=== PATIENT | male | born 1975 | race Caucasian/White ===

== ENCOUNTER 2017-05-15 14:42 | Emergency (ER) | payer MEDICAID, OTHER ==
[~2017-05-15] VITALS: Ht 160 cm; Wt 89.0 kg
[2017-05-15 14:47] VITALS: Ht 160 cm; Wt 89.0 kg
[2017-05-15] MEDS ORDERED: DIPHTH/TET/ACEL PERTUSS (ADULT) 0.5 ML VIAL IM* ONE (15:00)
--- NOTE | 2017-05-15 15:13 | ERD ---
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 He states that he had the machine to lift up the car and it slipped and the car engine fell on his finger and he tried to pull his finger out. States that there was bleeding, but bleeding controlled now. Denies pain in other areas. Denies numbness or tingling. Not up to date with tetanus. No other c/o ROS All systems reviewed and are negative except as per history of present illness. Medications Home Meds Active Scripts Cephalexin* (Keflex*) 500 Mg Capsule, 500 MG PO TID for 7 Days, CAP Prov:CANDY ETIENNE PA-C 05/15/17 PMhx/Soc History of Surgery: No Anesthesia Reaction: No Hx Neurological Disorder: No Hx Respiratory Disorders: No Hx Cardiac Disorders: No Hx Psychiatric Problems: No Hx Miscellaneous Medical Probl: No Hx Alcohol Use: No Hx Substance Use: No Hx Tobacco Use: No Physical Exam Vitals Vital Signs Date Time Temp Pulse Resp B/P Pulse Ox O2 Delivery O2 Flow Rate FiO2 05/15/17 14:47 98.1 86 18 137/86 99 Physical Exam GENERAL: Well-developed, well-nourished male. Appears in no acute distress. HEAD: Normocephalic, atraumatic. EYES: Pupils are equally reactive bilaterally. EOMs grossly intact. No conjunctival erythema. ENT: Moist mucous membranes. No uvula deviation. No kissing tonsils. No exudates. NECK: Supple. No lymphadenopathy or thyromegaly. No meningismus. negative kernig. negative brudinski. LUNG: Clear to auscultation bilaterally. No rhonchi, wheezing, rales or coarse breath sounds. HEART: Regular rate and rhythm. No murmurs, rubs or gallops. Extremities: Equal pulses bilaterally. No peripheral clubbing, cyanosis or edema. No unilateral leg swelling. right thumb has laceration and open cuts and slightly deformed. radius, ulnar, median nerve intact. NEUROLOGIC: Alert and oriented. Moving all four extremities. 5/5 strength in all extremities. Normal speech. Steady gait. SKIN: Normal color. Warm and dry. No rashes or lesions. Capillary refill < 2 seconds Results 24 hrs Current Medications Medications (Trade) Dose Ordered Sig/Marcin Route PRN Reason Start Time Stop Time Status Last Admin Dose Admin Diphtheria/ Tetanus/Acell Pertussis (Adacel) 0.5 ml ONCE ONCE IM* 05/15/17 15:00 05/15/17 15:01 DC 05/15/17 15:08 Lidocaine (Xylocaine 1% (Mdv) 20 ml) 20 ml ONCE ONCE SC 05/15/17 16:00 05/15/17 16:01 DC 05/15/17 15:44 Cephalexin (Keflex) 500 mg ONCE ONCE PO 05/15/17 16:00 05/15/17 16:01 DC 05/15/17 15:43 Cefazolin Sodium (Ancef) 1 gm ONCE ONCE IM 05/15/17 16:00 05/15/17 16:01 DC Procedures/MDM ER COURSE: I kept the patient and/or family informed of laboratory and diagnostic imaging results throughout the emergency room course. IMAGING: [place] [id number] Radiology Main Line: [phone] DIAGNOSTIC IMAGING REPORT Patient: JAVIER CHILDERS : 1975 Age: 41 Sex: M MR #: [id number] DOS: 05/15/17 1457 Ordering MD: CANDY ETIENNE PA-C Location: [facility] Room/Bed: PROCEDURE: XR Hand 3 Views. CLINICAL INDICATION: Right thumb pain and trauma. TECHNIQUE: AP, oblique and lateral views of the right hand were obtained. COMPARISON: No prior studies are available for comparison. FINDINGS: Subtle, minimally displaced fracture to the tip of the tuft of the first distal phalanx is identified. Overlying soft tissue irregularity may reflect soft tissue laceration. Dressing material is seen surrounding the thumb. The remaining osseous structures appear intact. No destructive bony lesions are observed. The interosseous spaces are unremarkable. IMPRESSION: Subtle fracture of the tip of the tuft of the first distal phalanx. Overlying soft tissue irregularity that may reflect soft tissue laceration. If there is high clinical suspicion for additional traumatic injury, further evaluation with CT should be considered. RPTAT: AA .Naren Rossi MD, MD Date Time Electronically viewed and signed by .Naren Rossi MD, MD on 05/15/2017 15:52 .P/ CC: CANDY ETIENNE PA-C MEDICAL DECISION MAKING: This is a 41 year old male who presents with laceration and finger pain after jamming into engine of car when it fell on finger today. Vital signs were reviewed. Patient is afebrile. Patient is not hypoxic. Also with my supervising physician Dr. gallego who examined patient agrees with my medical decision making and discharge plans. xray as read by radiologist shows Subtle fracture of the tip of the tuft of the first distal phalanx. Low suspicion for dislocation, septic joint, compartment syndrome, osteomyelitis, cellulitis, avascular necrosis, neurological injury, vascular injury, tendon laceration. Laceration Repair by me: Anesthesia: 1% lidocaine locally - digital block Location: right thumb Tendon/Joint/Nerves: No injury Foreign body: None detected after copious irrigation and exploration Technique: 4, 3-0 Simple Interrupted Sutures Complexity: No subcutaneous sutures/mucosal repair/ edge excision Post Closure Length: 4 cm Patient's bleeding was easily controlled in the department and there is no indication of anemia. No evidence of compartment syndrome, neurologic injury, vascular injury, open joint, tendon laceration, or foreign body. Patient is appropriate for outpatient follow up. 48 hour wound check. Scar minimization instructions given. One dose of keflex and 1g ancef given in ED. tolerated well with no adverse reaction Tdap given DISCHARGE: At this time, patient is stable for discharge and outpatient management with no new complaints during the ER course. Patient was sent home with Keflex, 2 day wound check in 7 day suture removal. Patient will be discharged home with instructions to recheck for new or worsening symptoms such as fever, nausea, weakness, LOC and to follow up with primary care in the next 1-2 days. Patient was advised to return to the ER for any new or worsening symptoms. Plan was discussed and patient and/or family understands and agrees. Home instructions were given. Departure Diagnosis: Primary Impression: Open fracture of tuft of distal phalanx of finger Additional Impression: Laceration Condition: Stable SHOOSHTARIAN,TANNAZ PA-C May 15, 2017 15:13
--- NOTE | 2017-05-15 15:53 | RADRPT ---
PROCEDURE: XR Hand 3 Views. CLINICAL INDICATION: Right thumb pain and trauma. TECHNIQUE: AP, oblique and lateral views of the right hand were obtained. COMPARISON: No prior studies are available for comparison. FINDINGS: Subtle, minimally displaced fracture to the tip of the tuft of the first distal phalanx is identifie d. Overlying soft tissue irregularity may reflect soft tissue laceration. Dressing material is seen surrounding the thumb. The remaining osseous structures appear intact. No destructive bony lesions are observed. The interosseous spaces are unremarkable. IMPRESSION: Subtle fracture of the tip of the tuft of the first distal phalanx. Overlying soft tissue irregularity that may reflect soft tissue laceration. If there is high clinical suspicion for additional traumatic injury, further evaluation with CT shou ld be considered. RPTAT: AA .Naren Rossi MD, Date Time Electronically viewed and signed by .Naren Rossi MD, on 05/15/2017 15:52 .P/
[2017-05-15] MEDS ORDERED: CEPH-443 PO (15:54)
[2017-05-15] MEDS ORDERED: LIDOCAINE 1% (MDV) 20 ML INJ SC ONE (16:00)
[2017-05-15] MEDS ORDERED: CEPHALEXIN 500 MG CAP PO ONE (16:00)
[2017-05-15] MEDS ORDERED: CEFAZOLIN 1 GM INJ IM ONE (16:00)
== END 2017-05-15 16:17 | disposition home or self-care (01) ==
LOC: FTE 14:42
DX: S62.521A Displaced fracture of distal phalanx of right thumb, initial encounter for closed fracture (principal); S61.011A Laceration without foreign body of right thumb without damage to nail, initial encounter; W20.8XXA Other cause of strike by thrown, projected or falling object, initial encounter; Y92.89 Other specified places as the place of occurrence of the external cause; Z23 Encounter for immunization
CPT/HCPCS: 12002; 73130; 90471; 96372; J0690; Z7502; Z7610

== ENCOUNTER 2017-05-25 16:09 | Emergency (ER) | payer MEDICAID ==
[~2017-05-25] VITALS: Ht 167.6 cm; Wt 75.0 kg
[~2017-05-25 16:09] MED LIST: CEPH-443 PO
[2017-05-25 16:17] VITALS: Ht 167.6 cm; Wt 75.0 kg
--- NOTE | 2017-05-25 17:11 | ERD ---
ER Documentation Chief Complaint Chief Complaint WOUND CHECK HPI This is a 41-year-old male that presents to the ER for suture removal. Patient now laceration on May 15 and had not had time to come to the ER to remove sutures. Patient is feeling much better, he does not have any pain. He has been working. He has not had any fevers or chills. ROS 12 point review of systems was done, all negative except per HPI.. Medications Home Meds Active Scripts Cephalexin* (Keflex*) 500 Mg Capsule, 500 MG PO TID for 7 Days, CAP Prov:CANDY ETIENNE PA-C 05/15/17 PMhx/Soc History of Surgery: No Anesthesia Reaction: No Hx Neurological Disorder: No Hx Respiratory Disorders: No Hx Cardiac Disorders: No Hx Psychiatric Problems: No Hx Miscellaneous Medical Probl: No Hx Alcohol Use: No Hx Substance Use: No Hx Tobacco Use: No Smoking Status: Never smoker Physical Exam Vitals Vital Signs Date Time Temp Pulse Resp B/P Pulse Ox O2 Delivery O2 Flow Rate FiO2 05/25/17 16:17 95 19 126/91 97 Physical Exam GENERAL: The patient is well developed and appropriate for usual state of health , in no apparent distress. CHEST: Clear to auscultation bilaterally. There are no rales, wheezes or rhonchi. HEART: Regular rate and rhythm. No murmurs, clicks, rubs or gallops. SKIN: 4 simple interrupted sutures to the left 1st digit, no discharge, erythema or wound dehiscence. Procedures/MDM Suture Removal by me: Sutures removed with tweezers and scissors without incident. Wound shows no evidence of infection, foreign body, neurologic injury, vascular injury, open joint or tendon laceration. Patient to follow up PRN. Departure Diagnosis: Primary Impression: Encounter for removal of sutures Condition: Stable Patient Instructions: Suture Removal, No Complication Additional Instructions: Llame al doctor MAANA y ritika zully ALEX PARA DENTRO DE 1-2 ZAVALETA.Dgale a la secretaria que nosotros le instruimos hacer esta alex.Avise o llame si herman condicin se empeora antes de la alex. Regresa aqui si peor o no mejor. RUSTY LOZA May 25, 2017 17:11
== END 2017-05-25 17:13 | disposition home or self-care (01) ==
LOC: FTE 16:09
DX: Z48.02 Encounter for removal of sutures (principal)
CPT/HCPCS: 99281